=== PATIENT | female | born 1940 | race Asian ===

== ENCOUNTER 2020-01-13 08:25 | Outpatient (CLI) | payer MEDICARE | END 2020-01-13 23:59 | disposition home or self-care (01) | LOC: PETCFH 08:25 | PROVIDERS: ATTEND Specialist | DX: Z02.9 Encounter for administrative examinations, unspecified (principal) ==

== ENCOUNTER → 2020-01-22 | Outpatient (CLI) | payer MEDICARE | END | disposition home or self-care (01) | LOC: PETCFH 08:38 | PROVIDERS: ATTEND Specialist | DX: C50.912 Malignant neoplasm of unspecified site of left female breast (principal); D70.9 Neutropenia, unspecified; D64.9 Anemia, unspecified | CPT/HCPCS: 78815; A9552 ==